=== PATIENT | male | born 1970 | race Hispanic/Latino ===

== ENCOUNTER 2023-09-10 15:35 | Inpatient (IN) | payer OTHER ==
[~2023-09-10] VITALS: Ht 175.3 cm; Wt 97.1 kg
[~2023-09-10 15:35] MED LIST: DEXMEDETOMIDINE HCL 200 MCG/2 ML VIAL ONE; DOXYCYCLINE HY100 MG PO; LIDOCAINE HCL 2% LOCAL INJ 5 ML SDV VIAL INJ ONE; ONDANSETRON HCL INJ 2MG/ML 2ML 2 MG/ML VIAL ONE; PROPOFOL IV EMULSION 10 MG/ML 20 ML VIAL ONE
[2023-09-10] MEDS ORDERED: Vancomycin IV 1 GM in SODIUM CHLORIDE 0.9% 250ML 250 ML IV ONE (16:15)
[2023-09-10 16:54] LABS: BASOPHILS % 0.5 % (0.0-1.0); EOSINOPHILS # (AUTO) 0.2 (0.0-0.4); EOSINOPHILS % 2.8 % (0.0-6.0); HEMATOCRIT 30.3 % (38.2-49.6); HEMOGLOBIN 10.8 g/dL (14.0-18.0); LYMPHOCYTES # (AUTO) 1.5 (1.0-3.2); LYMPHOCYTES % 19.9 % (18.0-39.1); MEAN CORPUSCULAR HEMOGLOBIN 32.8 pg (28-32); MEAN CORPUSCULAR HGB CONC 35.6 g/dL (31-35); MEAN CORPUSCULAR VOLUME 92.1 fL (81-99); MONOCYTES # (AUTO) 0.3 (0.2-0.8); MONOCYTES % 4.3 % (4.4-11.3); NEUTROPHILS # (AUTO) 5.6 (2.1-6.9); PLATELET COUNT 306 x10e3/uL (140-360); RED BLOOD COUNT 3.29 x10e6/uL (4.3-5.7); RED CELL DISTRIBUTION WIDTH 12.4 % (11.7-14.4); WHITE BLOOD COUNT 7.74 x10e3/uL (4.8-10.8)
[2023-09-10 17:09] LABS: ANION GAP 16.7 mmol/L (8-16); BLOOD UREA NITROGEN 22 mg/dL (7-26); BUN/CREATININE RATIO 13 (6-25); CALCIUM 9.6 mg/dL (8.4-10.2); CARBON DIOXIDE 22 mmol/L (22-29); CHLORIDE 106 mmol/L (98-107); CREATININE, SERUM 1.67 mg/dL (0.72-1.25); EST GLOMERULAR FILTRATION RATE 48 ML/MIN (>=60); GLUCOSE 184 mg/dL (74-118); POTASSIUM 4.7 mmol/L (3.5-5.1); SODIUM 140 mmol/L (136-145)
[2023-09-10 19:44] VITALS: BP 151/87; PULSE 86; RESP 18; TEMP 98.3; O2SAT 98
[2023-09-10 20:30] VITALS: BP 151/87; PULSE 86; RESP 18; TEMP 98.3; O2SAT 98
[2023-09-10 21:00] VITALS: BP 151/87; PULSE 86; RESP 18; TEMP 98.3; O2SAT 98
[2023-09-11] VITALS (7 sets, daily range): BP systolic 130–159; BP diastolic 76–92; PULSE 71–87; RESP 18–19; TEMP 97.3–98.4; O2SAT 94–100
[2023-09-11] MEDS: HYDROCODONE/APAP 10MG-325MG TAB PO PRN ×3 (00:58→20:12)
[2023-09-11] MEDS ORDERED: DEXTROSE 50% SYRINGE 50 ML IV PRN (01:00)
[2023-09-11 05:53] LABS: BASOPHILS # (AUTO) 0.1 (0.0-0.1); BASOPHILS % 0.7 % (0.0-1.0); EOSINOPHILS # (AUTO) 0.3 (0.0-0.4); EOSINOPHILS % 4.1 % (0.0-6.0); HEMATOCRIT 26.5 % (38.2-49.6); HEMOGLOBIN 9.6 g/dL (14.0-18.0); LYMPHOCYTES # (AUTO) 2.2 (1.0-3.2); LYMPHOCYTES % 29.9 % (18.0-39.1); MEAN CORPUSCULAR HEMOGLOBIN 34.7 pg (28-32); MEAN CORPUSCULAR HGB CONC 36.2 g/dL (31-35); MEAN CORPUSCULAR VOLUME 95.7 fL (81-99); MONOCYTES # (AUTO) 0.4 (0.2-0.8); MONOCYTES % 5.8 % (4.4-11.3); NEUTROPHILS # (AUTO) 4.3 (2.1-6.9); NEUTROPHILS % 59.1 % (38.7-80.0); PLATELET COUNT 223 x10e3/uL (140-360); RED BLOOD COUNT 2.77 x10e6/uL (4.3-5.7); RED CELL DISTRIBUTION WIDTH 12.6 % (11.7-14.4); WHITE BLOOD COUNT 7.26 x10e3/uL (4.8-10.8)
[2023-09-11 06:38] LABS: ANION GAP 13.5 mmol/L (8-16); CALCIUM 8.9 mg/dL (8.4-10.2); CREATININE, SERUM 1.21 mg/dL (0.72-1.25); POTASSIUM 4.5 mmol/L (3.5-5.1)
[2023-09-11] MEDS: INSULIN REGULAR, HUMAN 100 UNIT/1 ML SQ SCH ×3 (09:34→16:30)
[2023-09-11] MEDS ORDERED: SODIUM CHLORIDE 0.9% 250ML 250 ML ONE (13:31)
[2023-09-11] MEDS ORDERED: LIPITOR20 MG PO (14:58)
[2023-09-11] MEDS ORDERED: ALLERGY RELIEF10 M4 PO (14:58)
[2023-09-11] MEDS ORDERED: TRADJENTA5 MG PO (14:58)
[2023-09-11] MEDS ORDERED: NEURONTIN100 MG PO (14:58)
[2023-09-11] MEDS ORDERED: METFORMIN HCL500 MG PO (14:58)
[2023-09-11] MEDS ORDERED: GLIMEPIRIDE2 MG PO (14:58)
[2023-09-11] MEDS ORDERED: METFORMIN HCL 500 MG TAB CR PO SCH (17:00)
[2023-09-11] MEDS: GABAPENTIN 100 MG CAP PO SCH (20:12)
[2023-09-11] MEDS: ATORVASTATIN 20 MG TAB PO SCH (20:12)
[2023-09-12] VITALS (8 sets, daily range): BP systolic 130–162; BP diastolic 74–91; PULSE 72–87; RESP 18–20; TEMP 97.3–98.5; O2SAT 99–100
[2023-09-12] MEDS: HYDROCODONE/APAP 10MG-325MG TAB PO PRN ×2 (02:17→21:19)
[2023-09-12 05:49] LABS: BASOPHILS % 0.5 % (0.0-1.0); EOSINOPHILS # (AUTO) 0.3 (0.0-0.4); EOSINOPHILS % 4.2 % (0.0-6.0); HEMATOCRIT 28.2 % (38.2-49.6); HEMOGLOBIN 10.1 g/dL (14.0-18.0); LYMPHOCYTES % 26.8 % (18.0-39.1); MEAN CORPUSCULAR HEMOGLOBIN 33.4 pg (28-32); MEAN CORPUSCULAR HGB CONC 35.8 g/dL (31-35); MEAN CORPUSCULAR VOLUME 93.4 fL (81-99); MONOCYTES # (AUTO) 0.3 (0.2-0.8); MONOCYTES % 4.6 % (4.4-11.3); NEUTROPHILS # (AUTO) 4.7 (2.1-6.9); NEUTROPHILS % 63.6 % (38.7-80.0); PLATELET COUNT 254 x10e3/uL (140-360); RED BLOOD COUNT 3.02 x10e6/uL (4.3-5.7); RED CELL DISTRIBUTION WIDTH 12.3 % (11.7-14.4); WHITE BLOOD COUNT 7.39 x10e3/uL (4.8-10.8)
[2023-09-12 06:08] LABS: ANION GAP 12.5 mmol/L (8-16); CALCIUM 8.9 mg/dL (8.4-10.2); CREATININE, SERUM 0.98 mg/dL (0.72-1.25); POTASSIUM 4.5 mmol/L (3.5-5.1)
[2023-09-12] MEDS: GABAPENTIN 100 MG CAP PO SCH ×3 (08:07→21:18)
[2023-09-12] MEDS: METFORMIN HCL 500 MG TAB PO SCH ×2 (08:07→17:00)
[2023-09-12] MEDS: ATORVASTATIN 20 MG TAB PO SCH (21:18)
[2023-09-13] VITALS (7 sets, daily range): BP systolic 138–168; BP diastolic 84–102; PULSE 76–102; RESP 16–20; TEMP 97.8–98.8; O2SAT 98–100
[2023-09-13] MEDS: HYDROCODONE/APAP 10MG-325MG TAB PO PRN ×2 (03:14→21:26)
[2023-09-13] MEDS: METFORMIN HCL 500 MG TAB PO SCH ×2 (08:40→16:33)
[2023-09-13] MEDS: GABAPENTIN 100 MG CAP PO SCH ×3 (08:40→21:26)
[2023-09-13] MEDS: GLIMEPIRIDE 2 MG TAB PO SCH (08:40)
[2023-09-13] MEDS: ATORVASTATIN 20 MG TAB PO SCH (21:25)
[2023-09-14] VITALS (9 sets, daily range): BP systolic 137–182; BP diastolic 85–98; PULSE 76–88; RESP 16–20; TEMP 97.7–98.7; O2SAT 99–100
[2023-09-14] MEDS: GLIMEPIRIDE 2 MG TAB PO SCH (09:02)
[2023-09-14] MEDS: METFORMIN HCL 500 MG TAB PO SCH ×2 (09:02→17:20)
[2023-09-14] MEDS: GABAPENTIN 100 MG CAP PO SCH ×3 (09:02→21:10)
[2023-09-14] MEDS: HYDROCODONE/APAP 10MG-325MG TAB PO PRN ×2 (13:58→21:10)
[2023-09-14] MEDS: ATORVASTATIN 20 MG TAB PO SCH (21:09)
[2023-09-15] VITALS (11 sets, daily range): BP systolic 137–173; BP diastolic 76–97; PULSE 75–91; RESP 16–19; TEMP 97.6–98.7; O2SAT 97–100
[2023-09-15] MEDS: METFORMIN HCL 500 MG TAB PO SCH ×2 (08:23→16:02)
[2023-09-15] MEDS: GLIMEPIRIDE 2 MG TAB PO SCH (08:23)
[2023-09-15] MEDS: GABAPENTIN 100 MG CAP PO SCH ×3 (08:32→21:31)
[2023-09-15] MEDS ORDERED: ONDANSETRON HCL INJ 2MG/ML 2ML 2 MG/ML VIAL IV PRN (09:00)
[2023-09-15] MEDS ORDERED: HYDRALAZINE HCL 20 MG/ML VIAL IV PRN (09:00)
[2023-09-15] MEDS ORDERED: ACETAMINOPHEN 325 MG TAB PO PRN (09:00)
[2023-09-15] MEDS ORDERED: POLYETHYLENE GLYCOL 3350 17 GM PACK PO PRN (09:00)
[2023-09-15] MEDS: DOCUSATE SODIUM 100 MG CAP PO SCH ×2 (12:44→16:02)
[2023-09-15] MEDS: HYDROCODONE/APAP 10MG-325MG TAB PO PRN ×2 (16:13→23:34)
[2023-09-15] MEDS: ATORVASTATIN 20 MG TAB PO SCH (21:31)
[2023-09-16] VITALS (9 sets, daily range): BP systolic 147–174; BP diastolic 85–96; PULSE 78–86; RESP 16–20; TEMP 97.5–98.2; O2SAT 96–100
[2023-09-16] MEDS ORDERED: Vancomycin IV 1 GM VIAL ONE (02:42)
[2023-09-16 05:02] LABS: BASOPHILS % 0.6 % (0.0-1.0); EOSINOPHILS # (AUTO) 0.2 (0.0-0.4); EOSINOPHILS % 3.3 % (0.0-6.0); HEMATOCRIT 26.4 % (38.2-49.6); HEMOGLOBIN 9.7 g/dL (14.0-18.0); LYMPHOCYTES # (AUTO) 1.6 (1.0-3.2); LYMPHOCYTES % 22.5 % (18.0-39.1); MEAN CORPUSCULAR HEMOGLOBIN 33.8 pg (28-32); MEAN CORPUSCULAR HGB CONC 36.7 g/dL (31-35); MONOCYTES # (AUTO) 0.4 (0.2-0.8); MONOCYTES % 5.4 % (4.4-11.3); NEUTROPHILS # (AUTO) 4.9 (2.1-6.9); NEUTROPHILS % 67.9 % (38.7-80.0); PLATELET COUNT 233 x10e3/uL (140-360); RED BLOOD COUNT 2.87 x10e6/uL (4.3-5.7); RED CELL DISTRIBUTION WIDTH 12.4 % (11.7-14.4); WHITE BLOOD COUNT 7.19 x10e3/uL (4.8-10.8)
[2023-09-16 05:38] LABS: ALBUMIN 3.2 g/dL (3.5-5.0); ALBUMIN/GLOBULIN RATIO 0.9 (0.8-2.0); ANION GAP 12.2 mmol/L (8-16); BILIRUBIN,TOTAL 0.3 mg/dL (0.2-1.2); CALCIUM 9.1 mg/dL (8.4-10.2); CREATININE, SERUM 1.04 mg/dL (0.72-1.25); MAGNESIUM 1.5 MG/DL (1.3-2.1); PHOSPHORUS 4.4 MG/DL (2.3-4.7); POTASSIUM 4.2 mmol/L (3.5-5.1); TOTAL PROTEIN 6.7 g/dL (6.5-8.1)
[2023-09-16] MEDS: GLIMEPIRIDE 2 MG TAB PO SCH (07:30)
[2023-09-16] MEDS: METFORMIN HCL 500 MG TAB PO SCH ×2 (08:00→17:05)
[2023-09-16] MEDS: GABAPENTIN 100 MG CAP PO SCH ×3 (09:00→20:26)
[2023-09-16] MEDS: DOCUSATE SODIUM 100 MG CAP PO SCH ×2 (09:00→17:06)
[2023-09-16] MEDS ORDERED: ONDANSETRON HCL 4 MG ORAL DISINTEGRATING TAB PO PRN (09:15)
[2023-09-16] MEDS ORDERED: DEXAMETHASONE SOD PHOS INJ 4 MG/ML SDV ONE (11:47)
[2023-09-16] MEDS ORDERED: NEOSTIGMINE 1 MG/ML 10ML VIAL ONE (11:47)
[2023-09-16] MEDS ORDERED: BUPIVACAINE HCL 0.5% INJ 30 ML VIAL INJ ONE (11:47)
[2023-09-16] MEDS ORDERED: MIDAZOLAM HCL 2 MG/2 ML VIAL ONE (14:08)
[2023-09-16] MEDS ORDERED: FENTANYL CITRATE/PF 100MCG/2 ML INJ ONE (14:08)
[2023-09-16] MEDS: HYDROCODONE/APAP 10MG-325MG TAB PO PRN ×2 (17:05→22:52)
[2023-09-16] MEDS: ATORVASTATIN 20 MG TAB PO SCH (20:26)
[2023-09-16] MEDS ORDERED: ALBUTEROL/IPRATROPIUM 3 ML NEB NEB PRN (20:30)
[2023-09-17] VITALS (11 sets, daily range): BP systolic 137–161; BP diastolic 73–92; PULSE 79–88; RESP 17–20; TEMP 97.4–98.6; O2SAT 95–100
[2023-09-17] MEDS ORDERED: SODIUM CHLORIDE 0.9% 250ML 250 ML ONE (03:41)
[2023-09-17] MEDS ORDERED: MAGNESIUM SULFATE 2GM/50ML 50 ML IV ONE (04:00)
[2023-09-17] MEDS: HYDROCODONE/APAP 10MG-325MG TAB PO PRN ×3 (04:49→21:58)
[2023-09-17 06:19] LABS: BASOPHILS % 0.4 % (0.0-1.0); EOSINOPHILS # (AUTO) 0.2 (0.0-0.4); HEMATOCRIT 26.4 % (38.2-49.6); HEMOGLOBIN 9.4 g/dL (14.0-18.0); LYMPHOCYTES # (AUTO) 1.6 (1.0-3.2); LYMPHOCYTES % 21.7 % (18.0-39.1); MEAN CORPUSCULAR HEMOGLOBIN 32.5 pg (28-32); MEAN CORPUSCULAR HGB CONC 35.6 g/dL (31-35); MEAN CORPUSCULAR VOLUME 91.3 fL (81-99); MONOCYTES # (AUTO) 0.4 (0.2-0.8); MONOCYTES % 5.9 % (4.4-11.3); NEUTROPHILS % 68.7 % (38.7-80.0); PLATELET COUNT 262 x10e3/uL (140-360); RED BLOOD COUNT 2.89 x10e6/uL (4.3-5.7); RED CELL DISTRIBUTION WIDTH 12.1 % (11.7-14.4); WHITE BLOOD COUNT 7.32 x10e3/uL (4.8-10.8)
[2023-09-17 07:02] LABS: ANION GAP 12.1 mmol/L (8-16); CALCIUM 8.9 mg/dL (8.4-10.2); CREATININE, SERUM 0.93 mg/dL (0.72-1.25); POTASSIUM 4.1 mmol/L (3.5-5.1)
[2023-09-17] MEDS: METFORMIN HCL 500 MG TAB PO SCH ×2 (09:05→17:24)
[2023-09-17] MEDS: DOCUSATE SODIUM 100 MG CAP PO SCH ×2 (09:05→17:24)
[2023-09-17] MEDS: GABAPENTIN 100 MG CAP PO SCH ×3 (09:05→20:11)
[2023-09-17] MEDS: GLIMEPIRIDE 2 MG TAB PO SCH (09:05)
[2023-09-17] MEDS: ATORVASTATIN 20 MG TAB PO SCH (20:11)
[2023-09-18 00:43] VITALS: BP 129/79; PULSE 90; RESP 19; TEMP 98.8; O2SAT 98
[2023-09-18 04:45] VITALS: BP 144/79; PULSE 78; RESP 19; TEMP 98.7; O2SAT 99
[2023-09-18 08:38] VITALS: BP 161/94; PULSE 83; RESP 19; TEMP 97.5; O2SAT 99
[2023-09-18] MEDS: GABAPENTIN 100 MG CAP PO SCH (08:59)
[2023-09-18] MEDS: METFORMIN HCL 500 MG TAB PO SCH (09:00)
[2023-09-18] MEDS: DOCUSATE SODIUM 100 MG CAP PO SCH (09:00)
[2023-09-18] MEDS: GLIMEPIRIDE 2 MG TAB PO SCH (09:00)
[2023-09-18 09:05] VITALS: BP 161/94; PULSE 83; RESP 19; TEMP 97.5; O2SAT 99
[2023-09-18 12:10] VITALS: BP 158/70; PULSE 71; RESP 20; TEMP 98.4; O2SAT 98
[2023-09-18 12:11] VITALS: BP 162/93; PULSE 81; RESP 19; TEMP 97.9; O2SAT 99
[2023-09-18] MEDS ORDERED: LOSARTAN POTASS25 MG PO (13:45)
== END 2023-09-18 15:09 | disposition home or self-care (01) | DRG 74 ==
LOC: ER 15:50 → ERHOLD 17:18 → MED/SURG2 19:53
PROVIDERS: ADMIT Internal Medicine; ATTEND Internal Medicine
PROC: 0H9NXZZ Drainage of Left Foot Skin, External Approach (ICD-10-PCS; principal; 2023-09-16 11:54)
DX: E11.42 Type 2 diabetes mellitus with diabetic polyneuropathy (principal); J98.11 Atelectasis; L03.116 Cellulitis of left lower limb; L02.612 Cutaneous abscess of left foot; Z79.4 Long term (current) use of insulin; I10 Essential (primary) hypertension; E78.5 Hyperlipidemia, unspecified; E11.69 Type 2 diabetes mellitus with other specified complication; H54.8 Legal blindness, as defined in USA; Z11.52 Encounter for screening for COVID-19; Z79.84 Long term (current) use of oral hypoglycemic drugs
CPT/HCPCS: 0223U; 36415; 80048; 80053; 80202; 82948; 83036; 83735; 84100; 85025; 87040; 87071; 87075; 87086; 87205; 93925; 94799; 99252; 99284; J0696; J1100; J2001; J2250; J2405; J2543; J2710; J3475; J7050; U0002

== ENCOUNTER 2023-12-21 00:56 | Observation (INO) | payer SELFPAY ==
[~2023-12-21] VITALS: Ht 175.3 cm; Wt 97.1 kg
[~2023-12-21 00:56] MED LIST changes: +ALLERGY RELIEF10 M4 PO; -DEXMEDETOMIDINE HCL 200 MCG/2 ML VIAL ONE; +GLIMEPIRIDE2 MG PO; -LIDOCAINE HCL 2% LOCAL INJ 5 ML SDV VIAL INJ ONE; +LIPITOR20 MG PO; +LOSARTAN POTASS25 MG PO; +METFORMIN HCL500 MG PO; +NEURONTIN100 MG PO; -ONDANSETRON HCL INJ 2MG/ML 2ML 2 MG/ML VIAL ONE; -PROPOFOL IV EMULSION 10 MG/ML 20 ML VIAL ONE; +TRADJENTA5 MG PO
[2023-12-21] MEDS ORDERED: ASPIRIN 81 MG CHEW TAB PO ONE (01:00)
[2023-12-21] MEDS ORDERED: SODIUM CHLORIDE 0.9% 1000ML 1,000 ML ONE (01:19)
[2023-12-21] MEDS ORDERED: INSULIN REGULAR, HUMAN 100 UNIT/1 ML SQ ONE (01:30)
[2023-12-21] MEDS ORDERED: SODIUM CHLORIDE 0.9% 1000ML 1,000 ML IV ONE (01:30)
[2023-12-21 01:42] LABS: BASOPHILS % 0.3 % (0.0-1.0); EOSINOPHILS % 0.2 % (0.0-6.0); HEMATOCRIT 36.6 % (38.2-49.6); HEMOGLOBIN 12.5 g/dL (14.0-18.0); LYMPHOCYTES # (AUTO) 0.6 (1.0-3.2); LYMPHOCYTES % 6.5 % (18.0-39.1); MEAN CORPUSCULAR HGB CONC 34.2 g/dL (31-35); MEAN CORPUSCULAR VOLUME 93.6 fL (81-99); MONOCYTES % 0.3 % (4.4-11.3); NEUTROPHILS # (AUTO) 8.1 (2.1-6.9); NEUTROPHILS % 92.4 % (38.7-80.0); PLATELET COUNT 214 x10e3/uL (140-360); RED BLOOD COUNT 3.91 x10e6/uL (4.3-5.7); RED CELL DISTRIBUTION WIDTH 12.3 % (11.7-14.4); WHITE BLOOD COUNT 8.82 x10e3/uL (4.8-10.8)
[2023-12-21 01:57] LABS: ALANINE AMINOTRANSFERASE 41 IU/L (0-55); ALBUMIN/GLOBULIN RATIO 1.1 (0.8-2.0); ALKALINE PHOSPHATASE 173 IU/L (40-150); ANION GAP 12.7 mmol/L (8-16); BILIRUBIN,TOTAL 0.5 mg/dL (0.2-1.2); BLOOD UREA NITROGEN 26 mg/dL (7-26); BUN/CREATININE RATIO 13 (6-25); CALCIUM 9.2 mg/dL (8.4-10.2); CARBON DIOXIDE 22 mmol/L (22-29); CHLORIDE 97 mmol/L (98-107); CREATINE KINASE 19 IU/L (30-200); CREATININE, SERUM 2.04 mg/dL (0.72-1.25); EST GLOMERULAR FILTRATION RATE 38 ML/MIN (>=60); POTASSIUM 3.7 mmol/L (3.5-5.1); SODIUM 128 mmol/L (136-145); TOTAL PROTEIN 7.7 g/dL (6.5-8.1)
[2023-12-21 01:58] LABS: INR 0.86; PROTHROMBIN TIME 11.9 seconds (11.9-14.5)
[2023-12-21 01:59] LABS: GLUCOSE 512 mg/dL (74-118); PARTIAL THROMBOPLASTIN TIME 21.3 seconds (23.8-35.5)
[2023-12-21 02:18] LABS: TROPONIN I < 0.001 ng/mL (0-0.300)
[2023-12-21] MEDS ORDERED: ONDANSETRON HCL INJ 2MG/ML 2ML 2 MG/ML VIAL IV PRN (02:45)
[2023-12-21] MEDS ORDERED: SODIUM CHLORIDE 0.9% 1000ML 1,000 ML IV SCH (02:45)
[2023-12-21] MEDS ORDERED: DEXTROSE 50% SYRINGE 50 ML IV PRN (02:45)
[2023-12-21] MEDS ORDERED: Morphine 4mg INJECTION 4 MG/ML INJ IV PRN (02:45)
[2023-12-21 03:45] VITALS: BP 105/79; PULSE 110; RESP 20; TEMP 98.1; O2SAT 100
[2023-12-21 04:26] VITALS: BP_SYST 105; BP_SYST 155; BP_DIAS 79; BP_DIAS 81; PULSE 110; RESP 20; TEMP 98.1; O2SAT 100; O2SAT 99
[2023-12-21 07:11] LABS: TROPONIN I 0.003 ng/mL (0-0.300)
[2023-12-21 08:39] VITALS: BP 105/79; PULSE 110; RESP 20; TEMP 98.1; O2SAT 100
[2023-12-21 08:48] VITALS: BP 113/75; PULSE 82; RESP 18; TEMP 98.5; O2SAT 92
[2023-12-21] MEDS: INSULIN REGULAR, HUMAN 100 UNIT/1 ML SQ SCH ×2 (10:01→12:15)
[2023-12-21] MEDS ORDERED: GLUCOTROL XL10 MG PO (11:35)
[2023-12-21] MEDS ORDERED: JANUVIA100 MG PO (11:36)
[2023-12-21] MEDS ORDERED: LIPITOR20 MG PO (11:38)
== END 2023-12-21 12:41 | disposition home or self-care (01) ==
LOC: ER 00:58 → ERHOLD 02:36 → MED/SURG2 03:32
PROVIDERS: ADMIT Internal Medicine; ATTEND Internal Medicine
DX: E11.65 Type 2 diabetes mellitus with hyperglycemia (principal); Z91.148 Patient's other noncompliance with medication regimen for other reason; N28.9 Disorder of kidney and ureter, unspecified; R07.89 Other chest pain; E11.40 Type 2 diabetes mellitus with diabetic neuropathy, unspecified; Z79.84 Long term (current) use of oral hypoglycemic drugs; I10 Essential (primary) hypertension; R00.0 Tachycardia, unspecified; E78.5 Hyperlipidemia, unspecified; H54.8 Legal blindness, as defined in USA; Z11.52 Encounter for screening for COVID-19; Z79.899 Other long term (current) drug therapy
CPT/HCPCS: 36415; 71045; 71250; 74176; 80053; 80320; 82550; 82948; 83690; 83880; 84484; 85025; 85379; 85610; 85730; 93005; 99284; C9113; G0378; J2270; J2405; J7030; U0002

== ENCOUNTER 2024-07-16 06:04 | Emergency (ER) | payer SELFPAY ==
[~2024-07-16] VITALS: Ht 175.3 cm; Wt 93.0 kg
[~2024-07-16 06:04] MED LIST changes: +GLUCOTROL XL10 MG PO; +JANUVIA100 MG PO
[2024-07-16 06:30] LABS: BASOPHILS % 0.6 % (0.0-1.0); EOSINOPHILS # (AUTO) 0.3 (0.0-0.4); EOSINOPHILS % 3.8 % (0.0-6.0); HEMOGLOBIN 10.5 g/dL (14.0-18.0); LYMPHOCYTES # (AUTO) 2.2 (1.0-3.2); LYMPHOCYTES % 32.3 % (18.0-39.1); MEAN CORPUSCULAR HEMOGLOBIN 33.4 pg (28-32); MEAN CORPUSCULAR HGB CONC 33.9 g/dL (31-35); MEAN CORPUSCULAR VOLUME 98.7 fL (81-99); MONOCYTES # (AUTO) 0.4 (0.2-0.8); MONOCYTES % 5.5 % (4.4-11.3); NEUTROPHILS # (AUTO) 3.9 (2.1-6.9); NEUTROPHILS % 57.7 % (38.7-80.0); PLATELET COUNT 222 x10e3/uL (140-360); RED BLOOD COUNT 3.14 x10e6/uL (4.3-5.7); RED CELL DISTRIBUTION WIDTH 12.4 % (11.7-14.4); WHITE BLOOD COUNT 6.77 x10e3/uL (4.8-10.8)
[2024-07-16 06:41] LABS: ALBUMIN 4.1 g/dL (3.5-5.0); ALBUMIN/GLOBULIN RATIO 1.2 (0.8-2.0); ANION GAP 15.2 mmol/L (8-16); BILIRUBIN,TOTAL 0.5 mg/dL (0.2-1.2); CALCIUM 9.4 mg/dL (8.4-10.2); CREATININE, SERUM 1.4 mg/dL (0.72-1.25); POTASSIUM 4.2 mmol/L (3.5-5.1); TOTAL PROTEIN 7.4 g/dL (6.5-8.1)
[2024-07-16] MEDS ORDERED: TERBINAFINE HC250 MG PO (07:34)
[2024-07-16] MEDS ORDERED: LEVOFLOXACIN750 MG PO (07:36)
[2024-07-16 08:12] VITALS: PULSE 77; RESP 18; TEMP 98.8; O2SAT 98
== END 2024-07-16 08:21 | disposition home or self-care (01) ==
LOC: ER 06:10
DX: B35.1 Tinea unguium (principal); E11.65 Type 2 diabetes mellitus with hyperglycemia; E11.40 Type 2 diabetes mellitus with diabetic neuropathy, unspecified
CPT/HCPCS: 36415; 71101; 80053; 85025; 93005; 99284